=== PATIENT | male | born 1995 | race Caucasian/White ===

== ENCOUNTER 2018-06-27 17:45 | Emergency (ER) | payer BC ==
[~2018-06-27] VITALS: Ht 188 cm; Wt 86.4 kg
[~2018-06-27 17:45] MED LIST: PREDNISONE20 MG PO
[2018-06-27 17:54] VITALS: BP 134/77; TEMP 98.3
[2018-06-27 18:27] LABS: BASO % 0.5 % (0.0-2.0); EOS # 0.1 (0.0-0.7); GRAN # 3.3 (1.4-6.5); GRAN % 54.5 % (42.2-75.2); HEMATOCRIT 40.6 % (42.0-52.0); HEMOGLOBIN 14.2 g/dl (13.5-18.0); LYMPH # 1.8 (1.2-3.4); LYMPH % 29.3 % (20.0-51.0); MEAN CELL VOLUME 92 fl (80.0-100.0); MEAN CORPUSCULAR HEMOGLOBIN 32 pg (27.0-31.0); MEAN CORPUSCULAR HGB CONC 35 g/dl (33.0-37.0); MEAN PLATELET VOLUME 10.3 fl (7.4-10.4); MONO # 0.8 (0.1-0.6); MONO % 13.5 % (1.7-9.3); PLATELET COUNT 232 K/mm3 (130-400); RED BLOOD COUNT 4.43 M/mm3 (4.20-5.60); REDCELL DISTRIBUTION WIDTH-CV 11.4 % (11.5-14.5)
[2018-06-27 18:39] LABS: ALANINE AMINOTRANSFERASE 33 U/L (21-72); ALBUMIN 4.5 gm/dL (3.5-5.0); ALKALINE PHOSPHATASE 45 U/L (50-136); ANION GAP 6 mmol/L (7-16); AST,SGOT 23 U/L (15-37); BILIRUBIN,TOTAL 0.7 mg/dL (0.0-1.0); BLOOD UREA NITROGEN 19 mg/dL (9-20); CARBON DIOXIDE 31 mmol/L (22-30); CHLORIDE 104 mmol/L (98-107); CREATININE, serum 0.94 mg/dL (0.66-1.25); GLUCOSE 85 mg/dL (74-106); POTASSIUM 3.9 mmol/L (3.4-5.0); SODIUM 141 mmol/L (137-145); TOTAL PROTEIN 7.3 gm/dL (6.4-8.2)
[2018-06-27 18:44] LABS: C-REACTIVE PROTEIN < 0.5 mg/dL (0.0-0.9)
[2018-06-27 20:12] VITALS: PULSE 60
== END 2018-06-27 19:43 | disposition home or self-care (01) ==
LOC: COL.ER 17:45
PROVIDERS: Emergency Medicine
DX: R25.1 Tremor, unspecified (principal); F41.9 Anxiety disorder, unspecified; Z79.52 Long term (current) use of systemic steroids
CPT/HCPCS: J2060; J7030